=== PATIENT | female | born 1940 | race Caucasian/White ===

== ENCOUNTER 2017-06-22 22:25 | Emergency (ER) | payer MEDICARE, MEDICAID ==
[~2017-06-22] VITALS: Ht 160 cm; Wt 61.0 kg
[~2017-06-22 22:25] MED LIST: GLIP5TAB12 PO; METF500T4 PO
[2017-06-22] MEDS ORDERED: TETANUS, DIPHTHERIA, PERTUSSIS VAC/PF 0.5ML (>7YR OLD) IM ONE (23:15)
[2017-06-23 00:10] VITALS: BP 162/68
[2017-06-23] MEDS ORDERED: BACITRACIN ZINC 15GM TUBE TOP ONE (00:30)
[2017-06-23] MEDS ORDERED: BACITRACIN ZINC OINT UDPKT TOP SCH (00:45)
== END 2017-06-23 00:45 | disposition home or self-care (01) ==
LOC: ER 22:44
DX: S90.821A Blister (nonthermal), right foot, initial encounter (principal); E11.9 Type 2 diabetes mellitus without complications; Z23 Encounter for immunization; Z79.84 Long term (current) use of oral hypoglycemic drugs; X58.XXXA Exposure to other specified factors, initial encounter; Y92.9 Unspecified place or not applicable
CPT/HCPCS: 10060; 90471; 90715; 99283

== ENCOUNTER 2018-07-11 20:00 | Emergency (ER) | payer MEDICARE, MEDICAID ==
[~2018-07-11] VITALS: Ht 154.9 cm; Wt 61.0 kg
[~2018-07-11 20:00] MED LIST changes: +METF-414 PO; -METF500T4 PO
[2018-07-11 22:09] LABS: CLARITY URINE CLOUDY (CLEAR); COLOR URINE YELLOW (YELLOW); KETONES URINE NEGATIVE (NEGATIVE); LEUKOCYTE ESTERASE URINE 1+ (NEGATIVE); NITRITE URINE NEGATIVE (NEGATIVE); OCCULT BLOOD URINE NEGATIVE (NEGATIVE); PROTEIN URINE TRACE (NEGATIVE); UROBILINOGEN URINE 0.2 E.U./dL (0.2-1.0)
[2018-07-12] MEDS ORDERED: SODIUM CHLORIDE 0.9% 1,000 ML IV ONE (04:41)
[2018-07-12] MEDS ORDERED: ONDANSETRON HCL 4MG/2ML INJ IV STA (04:41)
[2018-07-12 07:22] LABS: BASOPHILS % 0.7 % (0.0-2.0); EOSINOPHILS % 3.9 % (0.0-5.0); HEMATOCRIT. 30.1 % (36.0-48.0); HEMOGLOBIN. 9.8 g/dL (12.0-16.0); LYMPHOCYTES % 34.3 % (20.0-50.0); MEAN CORPUSCULAR HEMOGLOBIN 30.2 pg (28.0-32.0); MEAN CORPUSCULAR VOLUME 92.7 fL (81.0-99.0); MEAN PLATELET VOLUME 8.8 fl (7.4-10.4); MONOCYTES % 6.1 % (2.0-8.0); PLATELET 294 x1000/uL (130-400); RED BLOOD CELL COUNT 3.25 mill/uL (4.2-5.4); RED CELL DISTRIBUTION WIDTH 14.1 % (11.6-14.6)
[2018-07-12 07:25] LABS: CHLORIDE 109 mEq/L (98-107)
[2018-07-12 09:24] VITALS: BP 154/74
== END 2018-07-12 09:27 | disposition home or self-care (01) ==
LOC: ER 20:00
DX: R11.2 Nausea with vomiting, unspecified (principal); I10 Essential (primary) hypertension; E11.9 Type 2 diabetes mellitus without complications; H93.8X2 Other specified disorders of left ear; R41.82 Altered mental status, unspecified; Z89.411 Acquired absence of right great toe; Z89.012 Acquired absence of left thumb; Z79.899 Other long term (current) drug therapy
CPT/HCPCS: 36415; 70450; 80053; 81003; 82962; 83690; 85025; 93005; 96361; 96374; 99284; J2405; J7030